=== PATIENT | male | born 1940 | race Caucasian/White ===

== ENCOUNTER 2018-08-10 08:00 | Inpatient (IN) ==
[~2018-08-10 08:00] MED LIST: LIDOCAINE W/ SODIUM BICARB 0.5 ML SYR ONE; LIDOCAINE W/ SODIUM BICARB 0.5 ML SYR SUBD ONE; Lactated Ringers 1,000 ML PRIMARY IV ONE; Lactated Ringers 1,000 ML PRIMARY IV SCH; Nasal Sanitizer POPSWAB ampule 3 AMP (Nozin) PREOP DOSE ENOS SCH; ceFAZolin Inj 2gm (Premix) 2 GM/50 ML BAG IV ONE
[2018-08-10] MEDS ORDERED: fentaNYL Inj 250 MCG/5 ML VIAL ONE (08:36)
[2018-08-10] MEDS ORDERED: PROPOFOL 10 MG/1 ML (200 MG/20 ML) VIAL IV ONE (08:36)
[2018-08-10] MEDS ORDERED: LIDOCAINE MPF 2% - 5 ML (20 MG/1 ML) ONE (08:36)
[2018-08-10] MEDS ORDERED: MIDAZOLAM HCL 2 MG/2 ML VIAL ONE (08:36)
[2018-08-10] MEDS ORDERED: ceFAZolin Inj 2gm (Premix) 2 GM/50 ML BAG IV ONE (08:57)
[2018-08-10] MEDS ORDERED: ePHEDrine Inj 50 MG/ML AMP ONE (10:03)
[2018-08-10] MEDS ORDERED: KETAMINE 100 MG/1 ML - 5 ML ONE (10:38)
[2018-08-10] MEDS ORDERED: Lactated Ringers 1,000 ML PRIMARY IV ONE (10:59)
[2018-08-10] MEDS ORDERED: BUPivacaine Liposome/PF (Exparel) Inj 20ml vial INFIL ONE (11:10)
[2018-08-10] MEDS ORDERED: BUPivacaine Inj 0.5% PF (5mg/ml) 10ml vial ONE (11:10)
--- NOTE | 2018-08-10 12:25 | ORTHO.OP ---
Surgery Date: 08/10/18 Preoperative Diagnosis: Delayed union right femoral neck fracture with hardware back out/failure Postoperative Diagnosis: Same Procedure: #1Removal hardware right hip replacement #2 cannulated screw fixation right femoral neck fracture with new hardware. Surgeon: Vicki Ferrer MD Rehabilitation Nurse: MARYCRUZ Hutchinson Anesthesia Provider: Myke Valentine CRNA Anesthesia Type: General Estimated Blood Loss (mL): 75 Fluids: 1600 mL crystalloid Complications: None Operative Summary: Extubated and taken to recovery in stable condition.
[2018-08-10] MEDS ORDERED: ONDANSETRON 4 MG/2 ML VIAL IVP PRN (12:53)
[2018-08-10] MEDS ORDERED: MORPHINE SULFATE 2 MG/1 ML IVP PRN (12:53)
[2018-08-10] MEDS ORDERED: MORPHINE SULFATE 10 MG/1 ML IV PRN (13:05)
[2018-08-10] MEDS ORDERED: MORPHINE SULFATE 4 MG/1 ML IV PRN (13:05)
[2018-08-10] MEDS ORDERED: MORPHINE SULFATE 2 MG/1 ML IV PRN (13:05)
--- NOTE | 2018-08-10 13:31 | CONSULT ---
Consult Note - Consult Consult Date: 08/10/18 Reason for Consult: PostOp Consulation : Ortho Requesting Physician: Dr. Ferrer Primary Care Provider: NONE NONE - History of Present Illness History of Present Illness: This is a 77 years old male with medical history significant for history of diabetes, hypertension, essential tremor and hypothyroidism who came into the hospital to have surgery for removal of hardware from a previous right hip fracture and replacement with new screws. This was done today by Dr. ferrer. The hospitalist service were consulted for management of medical issues. The patient did have some discomfort superficial he said in the wound but otherwise denying other symptoms. There is no chest pain, no nausea. No shortness of breath. Past Medical History Medical History: 1. Hypertension. 2. Diabetes. 3. Essential tremor. 4. Hypothyroidism Surgical History: 1. History of appendectomy. 2. History of renal tumor ablation. 3. History of thyroidectomy Family History: Reviewed an Not Pertinent Past Social History: Doesn't smoke, doesn't drink no drugs. Lives in [place]. 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 Tobacco Use: Never Smoker In the Past 12 Months, Have Used or Abuse Any of the Following Substance: None Alcohol Use: None Review of Systems - Review of Systems All Systems: Reviewed & No Additional Complaints Except as Stated Medication / Allergies Home Medications: Home Medications Medication Instructions Recorded Confirmed Type insulin lispro (U- 100) 100 15 unit SUBCUT QACLUNCH 05/24/18 08/09/18 History unit/mL subcutaneous solution levothyroxine 175 mcg tablet 175 mcg PO QDAY 05/24/18 08/09/18 History hydrocodone 5 mg-acetaminophen 325 1 tab PO Q4H PRN 05/28/18 08/09/18 History mg tablet Calcium Carbonate [Calcium] 200 mg PO DAILY 07/29/18 08/09/18 History Cyclobenzaprine HCl 10 mg PO PRN PRN 07/29/18 08/09/18 History Furosemide 20 mg PO DAILY 07/29/18 08/09/18 History Lisinopril 20 mg PO DAILY 07/29/18 08/10/18 History Magnesium Oxide 420 mg PO DAILY 07/29/18 08/09/18 History Potassium Gluconate 500 mg PO DAILY 07/29/18 08/09/18 History Primidone 50 mg PO TID 07/29/18 08/09/18 History Allergies/Adverse Reactions: Allergies Allergy/AdvReac Type Severity Reaction Status Date / Time No Known Allergies Allergy Verified 08/10/18 13:02 Exam - Vitals Vital Signs: Vital Signs Temperature 97 F Temperature Source Temporal Artery Scan Pulse Rate [Pulse Oximeter] 78 Pulse Rate 71 Respiratory Rate 12 Blood Pressure [Right Arm] 151/84 Blood Pressure 138/77 Pulse Ox 91 Oxygen Flow Rate 1L Oxygen Delivery Method Room Air Height 6 ft 5 in Weight 264 lb 12.8 oz - General General Appearance: No Acute Distress, Cooperative, Obese - Head Head Exam: Normal Inspection - Eye Eye Exam: POSITIVE: Normal Appearance - ENT ENT Exam: POSITIVE: Normal Exam - Neck Neck Exam: Normal Inspection - Respiratory Respiratory Exam: POSITIVE: Clear to Auscultation - Bilaterally - Cardiovascular Cardiovascular Exam: POSITIVE: RRR - GI/Abdominal GI/Abdominal Exam: POSITIVE: Normal Bowel Sounds, Non Tender, Non Distended, Soft, No Organomegaly - Rectal Rectal Exam: POSITIVE: Deferred - External Exam: POSITIVE: Deferred - Extremities Extremities Exam: POSITIVE: Normal Inspection - Back Back Exam: POSITIVE: Normal Inspection - Neurological Neurological Exam: POSITIVE: Alert, Oriented x 3, CN II-XII Intact, No Facial Droop, Speech Intact / Clear, Motor Sensory Deficit - Psychiatric Psychiatric Exam: POSITIVE: Normal Affect - Integumentary Integumentary Exam: POSITIVE: Normal Color Assessment and Plan - Patient Problems (1) Status post hardware removal Current Visit: Yes Status: Acute Comment: Management per Dr. Ferrer. He wrote already for pain medications. PT and OT will be consulted. Plan is likely for him to go home on per My discussion with Dr. Ferrer. Code(s): Z98.890 - Other specified postprocedural states (2) Diabetes Current Visit: Yes Status: Acute Comment: Will puts him on his usual medications. His regimen is somewhat different, he said that he is on combination of long and short acting. he Use the same combination either once or twice and sometimes even he skip the dosage. The last time he took it was on Thursday. I think will check his blood sugar and if determine we give him both we just use the short-acting to control his blood sugar. Apparently he would give himself the insulin if his blood sugar more than 200. Code(s): E11.9 - Type 2 diabetes mellitus without complications (3) Hypertension Current Visit: Yes Status: Acute Comment: Resume previous meds Code(s): I10 - Essential (primary) hypertension (4) Hypothyroidism Current Visit: Yes Status: Acute Comment: Same med Code(s): E03.9 - Hypothyroidism, unspecified
--- NOTE | 2018-08-10 15:01 | CRNA.PROGR ---
Anesthesia Time - Procedure/Recovery Time Start Date: 08/10/18 End Date: 08/10/18 Anesthesia : Time In: 09:46 Anesthesia : Time Out: 12:25 Anesthesia : Total Time: 159 - Total Anesthesia Time Total Anesthesia Time (minutes): 159 - Other Weight: 120.111 kg Height: 6 ft 5 in Body Mass Index (BMI): 31.4 Physical Status: P3 Anesthesia Type: General Anesthesia : LMA
[2018-08-10] MEDS: PRIMIDONE 50 MG PO SCH ×2 (16:13→20:08)
[2018-08-10] MEDS: ceFAZolin Inj 2gm (Premix) 2 GM/50 ML BAG IV SCH (16:13)
[2018-08-10] MEDS: DOCUSATE 100 MG CAPSULE PO SCH (20:08)
[2018-08-10] MEDS: INSULIN ASPART 100 UNIT/ML SUBCUT PRN (20:16)
[2018-08-10] MEDS: HYDROcodone-APAP 7.5 MG-325 MG TABLET PO PRN (21:52)
[2018-08-11] MEDS: ceFAZolin Inj 2gm (Premix) 2 GM/50 ML BAG IV SCH ×2 (01:56→08:21)
[2018-08-11] MEDS: HYDROcodone-APAP 7.5 MG-325 MG TABLET PO PRN ×4 (04:43→20:12)
[2018-08-11 05:46] LABS: BASOPHILS # (AUTO) 0.02 10*3/UL; BASOPHILS % (AUTO) 0.4 % (0-1); EOSINOPHILS # (AUTO) 0.11 10*3/UL; EOSINOPHILS % (AUTO) 2.1 % (0-8); Hematocrit [HCT] 32.7 % (42.0-52.0); Hemoglobin [HGB] 10.8 g/dL (14.0-18.0); LYMPHOCYTES # (AUTO) 1.11 10*3/uL; MEAN CORPUSCULAR HEMOGLOBIN 27.8 PG (27-31); MEAN CORPUSCULAR VOLUME 84.1 FL (80-90); MEAN PLATELET VOLUME 10.5 FL (7.4-12.2); MONOCYTES # (AUTO) 0.41 10*3/UL (0.3-0.8); MONOCYTES % (AUTO) 7.9 % (5-15); NEUTROPHILS # (AUTO) 3.52 10*3/UL; NEUTROPHILS % (AUTO) 68.1 % (50-80); RED BLOOD COUNT 3.89 10^6/uL (4.70-6.10)
[2018-08-11 05:54] LABS: PLATELET MORPHOLOGY COMMENT NORMAL MORPHOLOGY (NORM); RBC MORPHOLOGY COMMENT NORMAL MORPHOLOGY (NORM); WBC MORPHOLOGY COMMENT NORMAL MORPHOLOGY (NORM)
[2018-08-11 06:02] LABS: BLOOD UREA NITROGEN 22 mg/dL (7-22)
[2018-08-11] MEDS: MAGNESIUM OXIDE 400 MG TABLET PO SCH (07:09)
[2018-08-11] MEDS: INSULIN ASPART 100 UNIT/ML SUBCUT PRN ×3 (07:30→20:13)
--- NOTE | 2018-08-11 07:57 | ORTHO.PROG ---
Last Taken Vital Signs: Vital Signs - Last Taken Temperature 98.3 F 08/11/18 05:00 Pulse Rate 95 08/11/18 05:00 Respiratory Rate 20 08/11/18 05:00 Blood Pressure 131/79 08/11/18 05:00 Pulse Ox 93 08/11/18 05:03 Subjective: Patient sitting up in bed eating breakfast. Does not seem to have much pain. Told me that he can move his leg with less pain than prior to surgery. Objective: Vital signs stable patient afebrile. Right hip dressing clean and dry. Thigh is supple. Hemoglobin and hematocrit 10 and 32. Assessment: Impression: Doing well following fixation of right hip fracture. Plan: Plan: Is to continue toe-touch weightbearing for now. Patient will have a ride tomorrow from [place]. Probably discharge him tomorrow morning.
[2018-08-11] MEDS: CALCIUM CARBONATE 500 MG (TUMS) CHEWABLE TABLET PO SCH (08:21)
[2018-08-11] MEDS: PRIMIDONE 50 MG PO SCH ×3 (08:21→20:12)
[2018-08-11] MEDS: LISINOPRIL 20 MG TABLET PO SCH (08:21)
[2018-08-11] MEDS: DOCUSATE 100 MG CAPSULE PO SCH ×2 (08:22→20:12)
[2018-08-11] MEDS: FUROSEMIDE 20 MG TABLET PO SCH (08:22)
[2018-08-11] MEDS ORDERED: POTASSIUM GLUCONATE 500 MG PO SCH (09:00)
--- NOTE | 2018-08-11 10:13 | PDOC(PROG) ---
Date of Service: 08/11/18 Time of Service: 10:09 Interval History: No complaints of chest pain, shortness breath, nausea or vomiting. Right hip pain well-controlled. Objective : Data - Labs CBC and BMP: 08/11/18 05:29 08/11/18 05:29 Additional Lab Results: Selected Entries 08/10/18 09:05 08/10/18 12:34 08/10/18 16:58 Finger Stick Blood Glucose 177 H 185 H 186 H 08/11/18 07:00 Finger Stick Blood Glucose 217 H Objective : Exam - General General Appearance: No Acute Distress, Cooperative Additional General Exam Details: Vital Signs - Last Taken Temperature 99.7 F H 08/11/18 07:59 Pulse Rate 88 08/11/18 07:59 Respiratory Rate 12 08/11/18 07:59 Blood Pressure 142/79 08/11/18 07:59 Pulse Ox 93 08/11/18 07:59 - Eye Eye Exam: No Scleral Icterus - ENT ENT Exam: Mucous Membranes Moist - Respiratory Respiratory Exam: Clear to Auscultation - Bilaterally, Breathing Non Labored - Cardiovascular Cardiovascular Exam: RRR, No Murmur, No Clicks, No Gallops, No Rubs, No JVD - GI/Abdominal GI/Abdominal Exam: Normal Bowel Sounds, Non Tender, Non Distended, Soft - Extremities Extremities Exam: No Clubbing Present, No Edema Present, No Cyanosis Present Additional Extremities Exam Details: Right hip incision is dressed, dressing is clean, dry, intact - Neurological Neurological Exam: Alert, Oriented x 3, No Facial Droop, Speech Intact / Clear Assessment and Plan - Patient Problems (1) Status post hardware removal Current Visit: Yes Status: Acute Code(s): Z98.890 - Other specified postprocedural states (2) Diabetes Current Visit: Yes Status: Acute Code(s): E11.9 - Type 2 diabetes mellitus without complications Qualifiers: Diabetes mellitus type: type 2 Diabetes mellitus assisted insulin use: with technician terminal and repeater use Diabetes mellitus complication status: without complication Qualified Code(s): E11.9 - Type 2 diabetes mellitus without complications; Z79.4 - assisted (current) use of insulin (3) Hypertension Current Visit: Yes Status: Acute Code(s): I10 - Essential (primary) hypertension Qualifiers: Hypertension type: essential hypertension Qualified Code(s): I10 - Essential (primary) hypertension (4) Hypothyroidism Current Visit: Yes Status: Acute Code(s): E03.9 - Hypothyroidism, unspecified Qualifiers: Hypothyroidism type: unspecified Qualified Code(s): E03.9 - Hypothyroidism, unspecified - Assessment / Plan Additional Assessment/Plan Details: Given blood sugars, I will continue insulin regimen as is for now. No change in antihypertensive therapy. The patient mentioned that he has been taking some calcium and magnesium supplements. His calcium level looks fine. I'll check his magnesium tomorrow per his request. He is worried that his calcium and magnesium will be elevated and causing problems with kidney stones. PT and OT. DVT prophylaxis as per orthopedics.
--- NOTE | 2018-08-11 10:27 | PT.PROG ---
Progress Note Progress Note: S: Patient states he isn't in too much pain this morning. O: Patient transferred from sit to stand with MOAx2. He was able to ambulate to the door of his room and back to his chair. A: Patient appeared to have difficulty transferring from supine to sitting, requiring MOAx2 to sit him upright. He was able to transfer and ambulate with moderate assistance. Patient will continue to benefit from skilled intervention. P: Patient will be seen twice a day during the week and once over the weekend until discharge.
--- NOTE | 2018-08-11 10:31 | PTI REPORT ---
Thank you for the referral of Jai Carcamo. He was seen on 08/10/18 for an inpatient evaluation status post right hip fracture, ORIF, and revision. SUBJECTIVE: The patient is a 77-year-old male. The patient reports his injury originally occurred back in March and he had surgery done in Christmas; however, it was discovered that some of the screws were getting into the joint, causing him excruciating pain, thus undergoing surgery to fix this problem. He states that even though he has surgical pain right now, it feels a lot better than it did after the first surgery. PAST MEDICAL HISTORY: Past medical history can be found in the patient's medical record. OBJECTIVE FINDINGS: Pain: The patient reports a pain level currently of 2 to 3/10 on the verbal analog scale (0=no pain, 10=worst pain); however, nursing states they just recently gave him his medication. Bed mobility: The patient was able to perform bed mobility with stand by assistance and verbal cues from supine to edge of bed. He was able to sit unsupported at edge of bed x5 minutes without any difficulty, shortness of breath, or pain increase. He was able to perform bed mobility back into bed with verbal cues to use his left lower extremity to assist his right. Transfers: The patient was able to perform a sit to stand transfer with proper hand placement and front wheeled walker that he brought while maintaining toe touch weight-bearing on the right lower extremity. Ambulation: The patient ambulated approximately 5 feet within his room only, maintaining the toe touch weight-bearing. Incision/Edema: The patient's incision was unable to be inspected due to the surgical bandage. The patient demonstrates generalized Grade II edema in that right hip and leg region. ASSESSMENT: Problem List: Decreased mobility Decreased strength Patient must maintain toe touch weight-bearing status Physical Therapy Goals: To be met by discharge from inpatient: Patient will be able to ascend and descend 5 stairs using his front wheeled walker and hand railing due to their home environment and having 4 steps to get in and out of their home, all while maintaining toe touch weight-bearing per surgical precautions. Patient will be able to ambulate up to 100 feet with appropriate assistive device and toe touch weight-bearing for household ambulation. TREATMENT PLAN: Patient will be seen B.I.D during the week and one time per day over the weekend as an inpatient to address the above goals and objectives. INITIAL TREATMENT: Treatment today consisted of the initial evaluation followed by the patient performing bed mobility in and out of bed as well as unsupported activities at edge of bed. The patient ambulated within his room, maintaining toe touch weight-bearing with his front wheeled walker that he brought from home. Per the patient, he is under the understanding that Dr. Ferrer will release him tomorrow if cleared by therapy. Depending on the patient's pain level we will progress tomorrow with gait training up and down stairs. ALE
--- NOTE | 2018-08-11 15:07 | PT.PROG ---
Progress Note Progress Note: S: Patient states he is feeling okay at this time. O: Patient ambulated 50 ft from his chair to the hallway. He completed open chain exercises bilaterally in a supine position. He was able to complete 5 repetitions of sit to stands before requesting to stop. A: Patient is improving with tolerance to exercises and ambulation. He will continue to benefit from skilled intervention. P: Patient will be seen twice a day during the week and once over the weekend until discharge.
--- NOTE | 2018-08-11 16:02 | OTI REPORT ---
Thank you for the referral of Jai Carcamo. He was seen on 08/11/18 for an occupational therapy inpatient evaluation status post right hip fracture. SUBJECTIVE: The patient is a 77-year-old male who is being seen secondary to having a hip revision done on the right side. The patient states that prior to admission he had lived at his home for the past month; however, [facility]. The patient states he was still struggling with some of his ADLs such as dressing, but it was getting better. He has been limited with some of his activity as when he walked, the screw that was impinging into the bone was hurting him quite a bit. His states that they have a one level home. They do not have a shower chair. They do have a higher toilet. The patient reports that he does have some adaptive devices but they do not work very well and he was interested in new devices. PAST MEDICAL HISTORY: Past medical history can be found in the patient's medical record. OBJECTIVE FINDINGS: General observations: The patient was sitting in chair upon the therapist's arrival. He was educated in his hip precautions. Activities of daily living: The patient was issued a flavoring machine operator, sock aide, shoe horn, and bath sponge to improve his independence with ADLs. The patient was able to use flavoring machine operator to doff socks and don pants with min assist. He was able to pull pants up to knees. Once standing, the patient required max assist to pull pants up to waist level as he demonstrated balance difficulties. Transfers: The patient required max assist to come from sit to stand. We did have the patient weigh himself on the scale. He required mod assist to keep his balance. The patient required min assist to transfer from stand to sit. Range of motion: The patient had within functional limits for active range of motion of bilateral upper extremities. Strength: Strength throughout bilateral upper extremities was 3+/5. He has decreased functional strength for upper extremities when completing sit to stands. ASSESSMENT: The patient may benefit from a shower chair; however, he and his wanted to discuss this further to see which type of shower chair they would like. Problem List: Decreased ability to complete ADLs Decreased upper extremity strength Decreased ability to complete transfers Decreased safety Short-Term Goals: To be met by discharge from inpatient: Patient will be able to use adaptive devices and modified independence to dress lower extremities and stand by assist to pull pants from knee to waistline when in a standing position. Patient will be able to complete a toilet transfer with stand by assist. Patient will be able to stand at sink x5 minutes and complete standing activity with stand by assistance with no balance issues. Patient will increase upper extremity strength to 4+/5 to improve his abilities to complete sit to stand transfers with stand by assist. Long-Term Goals: To be met following discharge from inpatient: Patient will demonstrate independence and safety with functional transfers and ADLs 100% of the time. TREATMENT PLAN: Patient will be seen B.I.D during the week and one time per day over the weekend as an inpatient to address the above goals and objectives. INITIAL TREATMENT: Treatment today consisted of the initial evaluation followed by the patient receiving education on adaptive devices dressing lower extremities. ALE
--- NOTE | 2018-08-11 16:24 | OT.PROG ---
Progress Note Progress Note: S: pt stated he was ok with going downstairs for therapy. He appeared to be up for about anything. O: pt was seen in therapy after completing PT. He completed UE exercises with GTB in all planes x20 to increase strength to assist with postural transitions. He then transferred apprx 20 ft to arm bike. He completed 10 min on arm bike to increase activity tolerance. OT assisted PT back up to his room where he was left upright in chair with call light within reach. A: pt may continue to benefit from therapy, with possible SB to ensure a successful return home. P: continue per POC.
[2018-08-12] MEDS: HYDROcodone-APAP 7.5 MG-325 MG TABLET PO PRN ×3 (04:51→13:32)
[2018-08-12 05:06] LABS: BASOPHILS # (AUTO) 0.02 10*3/UL; BASOPHILS % (AUTO) 0.4 % (0-1); EOSINOPHILS # (AUTO) 0.22 10*3/UL; EOSINOPHILS % (AUTO) 4.6 % (0-8); Hematocrit [HCT] 31.9 % (42.0-52.0); Hemoglobin [HGB] 10.3 g/dL (14.0-18.0); LYMPHOCYTES # (AUTO) 1.14 10*3/uL; MEAN CORPUSCULAR HEMOGLOBIN 27.1 PG (27-31); MEAN CORPUSCULAR HGB CONC 32.3 g/dL (33-37); MEAN CORPUSCULAR VOLUME 83.9 FL (80-90); MEAN PLATELET VOLUME 10.9 FL (7.4-12.2); MONOCYTES # (AUTO) 0.45 10*3/UL (0.3-0.8); MONOCYTES % (AUTO) 9.4 % (5-15); NEUTROPHILS # (AUTO) 2.94 10*3/UL; NEUTROPHILS % (AUTO) 61.6 % (50-80)
[2018-08-12 05:13] LABS: PLATELET MORPHOLOGY COMMENT NORMAL MORPHOLOGY (NORM); RBC MORPHOLOGY COMMENT NORMAL MORPHOLOGY (NORM); WBC MORPHOLOGY COMMENT NORMAL MORPHOLOGY (NORM)
[2018-08-12 05:28] LABS: BLOOD UREA NITROGEN 22 mg/dL (7-22)
[2018-08-12] MEDS: MAGNESIUM OXIDE 400 MG TABLET PO SCH (06:40)
[2018-08-12] MEDS: INSULIN ASPART 100 UNIT/ML SUBCUT PRN ×2 (07:32→20:53)
[2018-08-12] MEDS: DOCUSATE 100 MG CAPSULE PO SCH ×2 (08:32→20:52)
[2018-08-12] MEDS: PRIMIDONE 50 MG PO SCH ×3 (08:32→20:52)
[2018-08-12] MEDS: CALCIUM CARBONATE 500 MG (TUMS) CHEWABLE TABLET PO SCH (08:32)
[2018-08-12] MEDS: LISINOPRIL 20 MG TABLET PO SCH (08:32)
[2018-08-12] MEDS: FUROSEMIDE 20 MG TABLET PO SCH (08:32)
--- NOTE | 2018-08-12 09:53 | PDOC(PROG) ---
Date of Service: 08/12/18 Time of Service: 09:49 Interval History: no chest pain, no SOB, no nausea or vomiting. right hip pain is better today. He thinks he has more lateral movement in hip than prior to surgery and hardware pain seems to be resolved. willing to do swing bed. Objective : Data - Labs CBC and BMP: 08/12/18 04:50 08/12/18 04:50 Additional Lab Results: Selected Entries 08/11/18 15:38 08/11/18 20:45 08/12/18 07:00 Finger Stick Blood Glucose 225 H 202 H 222 H Objective : Exam - General General Appearance: No Acute Distress, Cooperative Additional General Exam Details: Vital Signs - Last Taken Temperature 97.6 F 08/12/18 07:11 Pulse Rate 76 08/12/18 07:11 Respiratory Rate 18 08/12/18 07:11 Blood Pressure 112/58 08/12/18 07:11 Pulse Ox 93 08/12/18 07:11 - Eye Eye Exam: No Scleral Icterus - ENT ENT Exam: Mucous Membranes Moist - Neck Neck Exam: JVP is not Raised - Respiratory Respiratory Exam: Clear to Auscultation - Bilaterally, Breathing Non Labored - Cardiovascular Cardiovascular Exam: RRR, No Murmur, No Clicks, No Gallops, No Rubs, No JVD - GI/Abdominal GI/Abdominal Exam: Normal Bowel Sounds, Non Tender, Non Distended, Soft - Extremities Extremities Exam: No Clubbing Present, No Edema Present, No Cyanosis Present Additional Extremities Exam Details: right hip incision is dressed with a clean, dry, intact dressing. - Neurological Neurological Exam: Alert, Oriented x 3, No Facial Droop, Speech Intact / Clear - Psychiatric Psychiatric Exam: Normal Affect, Normal Mood Assessment and Plan - Patient Problems (1) Status post hardware removal Current Visit: Yes Status: Acute Code(s): Z98.890 - Other specified postprocedural states (2) Diabetes Current Visit: Yes Status: Acute Code(s): E11.9 - Type 2 diabetes mellitus without complications Qualifiers: Diabetes mellitus type: type 2 Diabetes mellitus rodent exterminator insulin use: with rodent exterminator use Diabetes mellitus complication status: without complication Qualified Code(s): E11.9 - Type 2 diabetes mellitus without complications; Z79.4 - intermodal dispatcher (current) use of insulin (3) Hypertension Current Visit: Yes Status: Acute Code(s): I10 - Essential (primary) hypertension Qualifiers: Hypertension type: essential hypertension Qualified Code(s): I10 - Essential (primary) hypertension (4) Hypothyroidism Current Visit: Yes Status: Acute Code(s): E03.9 - Hypothyroidism, unspecified Qualifiers: Hypothyroidism type: unspecified Qualified Code(s): E03.9 - Hypothyroidism, unspecified - Assessment / Plan Additional Assessment/Plan Details: continue PT and OT probable swing bed continue insulin coverage for blood sugars. add small dose of lantus at night. bedside blood sugar checks DVT prophylaxis as per orthopedics.
--- NOTE | 2018-08-12 11:28 | OT.PROG ---
Progress Note Progress Note: S: pt stated he was doing better than yesterday and he can feel the pain relief in hip as soon as he was out of surgery. O: pt completed bed mobility with min A to EOB. He then was educated on sock aid and director of professional services and completed task of donning/doffing socks with min A. LE dressing he used director of professional services and completed with SBA for safety. He donned UE shirt INd. He transferred to restroom with CGA and completed toileting INd. He then completed hygiene at sink ind and transferred downstairs apprx 45 ft before sitting in w/c. He completed 12 min on UE bike to increase activity tolerance before transferring to mat table. He needed min A to complete bed mobility with MIn A. PT took over therapy at this point. A: pt became somewhat fatigued upon completion of OT/PT and did not complete all of his exercises towards end of therapy. He returned to his room and nursing notified of fatigue and concern about his insulin. P: continue per POC.
--- NOTE | 2018-08-12 11:49 | PT.PROG ---
Progress Note Progress Note: S. Patient stated that he is tired this morning, however agreed to go to the therapy gym. O. Patient ambulated 70 feet to the wheelchair and was wheeled to the therapy gym where he performed exercises in the form of; heel slides, quad sets, glute sets, ankle pumps, short arc quads, heel toe raises, seated long arc quads, marches, ball squeezes, clam shells, resisted knee flexion, heel toe raises, all x 10 bilaterally with red thera bands, Patient then performed sit to stands x 10 Patient used the nu-step x 10 minutes then ambulated 50 feet to the wheelchair and was wheeled back to his room and was left with call light and alarm. A. Patient tolerated therapy well, he was able to perform all exercises with no increase in pain or problems. Patient continues to require min assist with transfers and ambulation, he would continue to benefit from skilled therapy to increase strength, endurance, and safety at this time. P. Continue POC.
--- NOTE | 2018-08-12 16:24 | OT.PROG ---
Progress Note Progress Note: S: pt reports he thinks he is doing better today. He was ok with getting a new walker. O: pt was transferred to therapy by PT. He sat on eOB and completed pulleys on 10-15 # in rows, bicep flex and shoulder ext x25, GTB in hor abd, tricep ext x25 all iwth BUE's to increase strength to assist with postural transitions. He was transferred back to his room and left upright in chair in reclined position with chair alarm on and call light within reach. A: pt completed activities much better today but may still benefit from SB to increase activity tolerance and improve sit to stands and overall transfers. P: Continue per POC.
--- NOTE | 2018-08-12 18:44 | ORTHO.PROG ---
Last Taken Vital Signs: Vital Signs - Last Taken Temperature 97.5 F 08/12/18 16:21 Pulse Rate 93 08/12/18 16:21 Respiratory Rate 18 08/12/18 16:21 Blood Pressure 108/51 08/12/18 16:21 Pulse Ox 93 08/12/18 16:21 Subjective: Patient sitting up in bed. Notices improved relief compared to preop. Objective: Right lower extremity hip incision clean and dry. Vital signs are stable patient is afebrile. Assessment: Impression as well after repeat pinning of right hip fracture. Patient is making some progress with regards to strength. Plan: Plan: It is felt that he would benefit from remaining here through the weekend and then hopefully going back to [place] on Thursday. He will continue work on physical therapy and generalized strengthening. Remain toe-touch weightbearing at least for a week or 2.
[2018-08-12] MEDS ORDERED: Insulin Glargine SoloStar Inj 100 UNIT/ML INSULN.PEN SUBCUT SCH (21:00)
[2018-08-13 05:01] LABS: BASOPHILS # (AUTO) 0.02 10*3/UL; BASOPHILS % (AUTO) 0.5 % (0-1); EOSINOPHILS # (AUTO) 0.25 10*3/UL; EOSINOPHILS % (AUTO) 5.7 % (0-8); Hematocrit [HCT] 31.3 % (42.0-52.0); Hemoglobin [HGB] 10.2 g/dL (14.0-18.0); LYMPHOCYTES # (AUTO) 1.15 10*3/uL; MEAN CORPUSCULAR HEMOGLOBIN 27.3 PG (27-31); MEAN CORPUSCULAR HGB CONC 32.6 g/dL (33-37); MEAN CORPUSCULAR VOLUME 83.7 FL (80-90); MEAN PLATELET VOLUME 11.3 FL (7.4-12.2); MONOCYTES # (AUTO) 0.38 10*3/UL (0.3-0.8); MONOCYTES % (AUTO) 8.6 % (5-15); NEUTROPHILS % (AUTO) 58.9 % (50-80); RED BLOOD COUNT 3.74 10^6/uL (4.70-6.10)
[2018-08-13 05:07] LABS: PLATELET MORPHOLOGY COMMENT NORMAL MORPHOLOGY (NORM); RBC MORPHOLOGY COMMENT NORMAL MORPHOLOGY (NORM); WBC MORPHOLOGY COMMENT NORMAL MORPHOLOGY (NORM)
[2018-08-13 05:16] LABS: BLOOD UREA NITROGEN 25 mg/dL (7-22); BUN/CREATININE RATIO 22.72 (6-20)
[2018-08-13] MEDS: MAGNESIUM OXIDE 400 MG TABLET PO SCH (07:43)
--- NOTE | 2018-08-13 08:41 | PT PM DAY ---
Diagnosis : Right Hip Fracture PM - Physical Therapy S: The patient states he is tired this afternoon; however, he agreed to come down to the therapy gym. O: The patient ambulated 40 feet to wheelchair and was wheeled to the therapy gym where he used the NuStep x15 minutes. He then performed seated exercises including long arc quads, marches, heel/toe raises, ball squeezes, and clamshells, all x10 bilaterally. The patient then performed sit to stands x7 and ambulated approximately 40 feet to the wheelchair. The patient was returned to his room where he was left in his chair with alarm set and call light within reach. A: The patient tolerated therapy fair. He is struggling with balance deficits and maintaining his toe touch weight-bearing status. He needs frequent reminders to remain toe touch weight-bearing. The patient would continue to benefit from skilled therapy to increase strength, mobility, and safety. P: Continue seeing patient BID during the week and one time per day over the weekend for transfers, ambulation, and range of motion/strengthening exercises. INNAD
[2018-08-13] MEDS: CALCIUM CARBONATE 500 MG (TUMS) CHEWABLE TABLET PO SCH (09:07)
[2018-08-13] MEDS: FUROSEMIDE 20 MG TABLET PO SCH (09:07)
[2018-08-13] MEDS: DOCUSATE 100 MG CAPSULE PO SCH ×2 (09:07→20:19)
[2018-08-13] MEDS: PRIMIDONE 50 MG PO SCH ×3 (09:07→20:19)
[2018-08-13] MEDS: LISINOPRIL 20 MG TABLET PO SCH (09:07)
[2018-08-13] MEDS: HYDROcodone-APAP 7.5 MG-325 MG TABLET PO PRN (09:08)
--- NOTE | 2018-08-13 11:59 | PT.PROG ---
Progress Note Progress Note: S. Patient stated that he is is sore this morning. O. Patient was wheeled to the therapy gym where he performed seated exercises in the form of; long arc quads, marches, heel toe raises, ball squeezes, clam shells, resisted knee flexion all x 10 bilaterally, sit to stands x 10 then ambulated 40 feet to the wheelchair and was returned to his room where he was left in wheelchair at the sink and nursing was notified. A. Patient tolerated therapy fair, he continues to struggle with sit to stand transfers and ambulation and requires min-mod assist. He would benefit from Swing bed to increase strength, mobility and safety at this time. P. Continue POC.
--- NOTE | 2018-08-13 14:09 | PDOC(PROG) ---
Date of Service: 08/13/18 Time of Service: 14:06 Interval History: Patient seen and evaluated a little earlier this morning. Doing very well. No chest pain, shortness breath, nausea or vomiting. Moving his bowels well. His pain is better in the right hip. He feels like he's getting more motion but still has some therapy needs and has 4 steps to get into his home. His is too slight to be able to pick him up should he fall. Objective : Data - Labs CBC and BMP: 08/13/18 04:32 08/13/18 04:32 Additional Lab Results: Selected Entries 08/12/18 16:22 08/12/18 20:55 08/13/18 06:57 Finger Stick Blood Glucose 312 H 353 H 213 H 08/13/18 11:00 Finger Stick Blood Glucose 343 H Objective : Exam - General General Appearance: No Acute Distress, Cooperative Additional General Exam Details: Vital Signs - Last Taken Temperature 97.5 F 08/13/18 11:22 Pulse Rate 81 08/13/18 11:22 Respiratory Rate 20 08/13/18 11:22 Blood Pressure 132/74 08/13/18 11:22 Pulse Ox 94 08/13/18 11:22 - Eye Eye Exam: No Scleral Icterus - ENT ENT Exam: Mucous Membranes Moist - Respiratory Respiratory Exam: Clear to Auscultation - Bilaterally, Breathing Non Labored - Cardiovascular Cardiovascular Exam: RRR, No Murmur, No Clicks, No Gallops, No Rubs, No JVD - GI/Abdominal GI/Abdominal Exam: Normal Bowel Sounds, Non Tender, Non Distended, Soft - Extremities Extremities Exam: No Clubbing Present, No Edema Present, No Cyanosis Present - Neurological Neurological Exam: Alert, Oriented x 3, No Facial Droop, Speech Intact / Clear Assessment and Plan - Patient Problems (1) Diabetes Current Visit: Yes Status: Acute Code(s): E11.9 - Type 2 diabetes mellitus without complications Qualifiers: Diabetes mellitus type: type 2 Diabetes mellitus 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 insulin use: with [facility] use Diabetes mellitus complication status: without complication Qualified Code(s): E11.9 - Type 2 diabetes mellitus without complications; 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 (2) Status post hardware removal Current Visit: Yes Status: Acute Code(s): Z98.890 - Other specified postprocedural states (3) Hypertension Current Visit: Yes Status: Acute Code(s): I10 - Essential (primary) hypertension Qualifiers: Hypertension type: essential hypertension Qualified Code(s): I10 - Essential (primary) hypertension (4) Hypothyroidism Current Visit: Yes Status: Acute Code(s): E03.9 - Hypothyroidism, unspecified Qualifiers: Hypothyroidism type: unspecified Qualified Code(s): E03.9 - Hypothyroidism, unspecified - Assessment / Plan Additional Assessment/Plan Details: I'm going to increase the Lantus his blood sugars are creeping up some. PT and OT and DVT prophylaxis. Anticipating that patient would likely discharge home Thursday as the therapy transport from [place], [place], will come here and drop the patient often they are willing to take the patient back home. We still have some gains to make in terms of therapy, prior to discharge as this patient is too high of a risk to send home today given his increased risk of fall postoperatively. In addition, he needs better blood sugar control prior to discharge. Again anticipating 08/17/2018
--- NOTE | 2018-08-13 15:47 | PT.PROG ---
Progress Note Progress Note: S. Patient stated that he is feeling a little better. O. Patient was wheeled to the therapy gym where he performed seated exercises in the form of; long arc quads, marches, ball squeezes, clam shells, resisted knee flexion all x 15 bilaterally with red thera bands. Patient performed sit to stands x 10 then ambulated 60 feet to the wheelchair and was returned to his room where he was left in his chair with alarm and call light. A. Patient tolerated therapy fair this afternoon, he continues to struggle with sit to stand transfers and ambulation, he would continue to benefit from skilled therapy to increase strength, mobility and safety at this time. P. Continue POC.
[2018-08-13] MEDS: INSULIN ASPART 100 UNIT/ML SUBCUT PRN ×2 (16:15→20:47)
--- NOTE | 2018-08-13 16:26 | OT.PROG ---
Progress Note Progress Note: S: pt reports that he is doing good and he is happy to have clean cloths and may get a shower tomorrow. O: pt was transferred downstairs by after completing toilet transfer and completed toileting INd. He arrived and completed NU step. He transferred to mat table and completed UE exercise in all planes 10-15# x20 to increase strength. He also completed hor abd with GTB also to increase strength to assist with postural transitions such as sit to stands. Pt completed x2 transfers approx total of 25 ft, slow but safely. A: pt is transferring much better, and although sit to stands are slow he is becoming more INd in transition. He may benefit from SB to continue strengthening and improve overall activity tolerance. P: continue per POC.
--- NOTE | 2018-08-13 17:02 | OT.PROG ---
Progress Note Progress Note: S. Patient stated that he is feeling good this afternoon. O. Patient was wheeled to the therapy gym where he performed seated long arc quads, marches, ball squeezes, clam shells, resisted knee flexion all x 20 bilaterally with 5# on the left and blue thera band. Patient then performed sit to stands x 20 and was returned to his room where he was left with call light. A. Patient tolerated therapy well, he continues to struggle with balance patient continues to require verbal cues to slow down. He would continue to benefit from continued therapy to increase strength, mobility and safety. P. Continue POC.
[2018-08-13] MEDS ORDERED: Insulin Glargine SoloStar Inj 100 UNIT/ML INSULN.PEN SUBCUT SCH (21:00)
[2018-08-14] MEDS: INSULIN ASPART 100 UNIT/ML SUBCUT PRN ×4 (07:23→20:32)
[2018-08-14] MEDS: MAGNESIUM OXIDE 400 MG TABLET PO SCH (07:28)
[2018-08-14] MEDS: LISINOPRIL 20 MG TABLET PO SCH (08:19)
[2018-08-14] MEDS: FUROSEMIDE 20 MG TABLET PO SCH (08:20)
[2018-08-14] MEDS: DOCUSATE 100 MG CAPSULE PO SCH ×2 (08:20→20:30)
[2018-08-14] MEDS: CALCIUM CARBONATE 500 MG (TUMS) CHEWABLE TABLET PO SCH (08:20)
[2018-08-14] MEDS: PRIMIDONE 50 MG PO SCH ×3 (08:20→20:30)
--- NOTE | 2018-08-14 11:43 | PDOC(PROG) ---
Date of Service: 08/14/18 Time of Service: 11:39 Interval History: Patient doing well. Pain controlled. No chest pain, shortness breath, nausea or vomiting. Has no constipation. Reading PT and OT notes, patient is improving with therapy, but still has some gains prior to going home. Objective : Data - Labs CBC and BMP: 08/13/18 04:32 08/13/18 04:32 Objective : Exam - General General Appearance: No Acute Distress, Cooperative Additional General Exam Details: Vital Signs - Last Taken Temperature 97.8 F 08/14/18 09:00 Pulse Rate 84 08/14/18 09:00 Respiratory Rate 18 08/14/18 09:00 Blood Pressure 139/71 08/14/18 09:00 Pulse Ox 90 08/14/18 09:00 - Eye Eye Exam: No Scleral Icterus - ENT ENT Exam: Mucous Membranes Moist - Respiratory Respiratory Exam: Clear to Auscultation - Bilaterally, Breathing Non Labored - Cardiovascular Cardiovascular Exam: RRR, No Murmur, No Clicks, No Gallops, No Rubs, No JVD - GI/Abdominal GI/Abdominal Exam: Normal Bowel Sounds, Non Tender, Non Distended, Soft - Extremities Extremities Exam: No Clubbing Present, No Edema Present, No Cyanosis Present - Neurological Neurological Exam: Alert, Oriented x 3, No Facial Droop, Speech Intact / Clear, Moves All Extremities Equally - Psychiatric Psychiatric Exam: Normal Affect, Normal Mood Assessment and Plan - Patient Problems (1) Diabetes Current Visit: Yes Status: Acute Code(s): E11.9 - Type 2 diabetes mellitus without complications Qualifiers: Diabetes mellitus type: type 2 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 Diabetes mellitus complication status: without complication Qualified Code(s): E11.9 - Type 2 diabetes mellitus without complications; Z79.4 - prison (current) use of insulin (2) Status post hardware removal Current Visit: Yes Status: Acute Code(s): Z98.890 - Other specified postprocedural states (3) Hypertension Current Visit: Yes Status: Acute Code(s): I10 - Essential (primary) hypertension Qualifiers: Hypertension type: essential hypertension Qualified Code(s): I10 - Essential (primary) hypertension (4) Hypothyroidism Current Visit: Yes Status: Acute Code(s): E03.9 - Hypothyroidism, unspecified Qualifiers: Hypothyroidism type: unspecified Qualified Code(s): E03.9 - Hypothyroidism, unspecified (5) Essential tremor Current Visit: Yes Status: Acute Code(s): G25.0 - Essential tremor - Assessment / Plan Additional Assessment/Plan Details: Continue PT and OT. The patient's stamina is improving, but he still has some transfer work to do prior to being ready for discharge. Still very high fall risk. I'm anticipating Thursday for discharge. Increase Lantus slightly to 10 units. 08/13/18 15:57 08/13/18 20:16 08/14/18 07:00 Finger Stick Blood Glucose 330 H 276 H 217 H 08/14/18 11:00 Finger Stick Blood Glucose 219 H Blood sugar control is a little better with increase in Lantus. Our goals are still to improve blood sugar control and continue with strengthening, conditioning, work with transfers, and stairs prior to discharge home to hopefully ensure safe transition back to home.
[2018-08-14] MEDS ORDERED: Insulin Glargine SoloStar Inj 100 UNIT/ML INSULN.PEN SUBCUT SCH (21:00)
[2018-08-15] MEDS: MAGNESIUM OXIDE 400 MG TABLET PO SCH (07:12)
[2018-08-15] MEDS: CALCIUM CARBONATE 500 MG (TUMS) CHEWABLE TABLET PO SCH (08:55)
[2018-08-15] MEDS: PRIMIDONE 50 MG PO SCH ×3 (08:55→20:30)
[2018-08-15] MEDS: LISINOPRIL 20 MG TABLET PO SCH (08:55)
[2018-08-15] MEDS: DOCUSATE 100 MG CAPSULE PO SCH ×2 (08:55→20:30)
[2018-08-15] MEDS: FUROSEMIDE 20 MG TABLET PO SCH (08:55)
[2018-08-15] MEDS: HYDROcodone-APAP 7.5 MG-325 MG TABLET PO PRN (09:23)
[2018-08-15] MEDS ORDERED: ASPIRIN 325 MG TABLET PO ONE (12:31)
--- NOTE | 2018-08-15 12:32 | PDOC(PROG) ---
Date of Service: 08/15/18 Time of Service: 12:28 Interval History: no chest pain, shortness of breath, or nausea or vomiting. incision still "stretches", but no pain in hip joint. He feels therapy is going well. Objective : Data - Labs CBC and BMP: 08/13/18 04:32 08/13/18 04:32 Additional Lab Results: Selected Entries 08/14/18 16:00 08/14/18 20:33 08/15/18 06:54 Finger Stick Blood Glucose 302 H 389 H 193 H 08/15/18 11:12 Finger Stick Blood Glucose 246 H Objective : Exam - General General Appearance: No Acute Distress, Cooperative Additional General Exam Details: Vital Signs - Last Taken Temperature 97 F 08/15/18 11:12 Pulse Rate 80 08/15/18 11:12 Respiratory Rate 18 08/15/18 11:12 Blood Pressure 128/78 08/15/18 11:12 Pulse Ox 96 08/15/18 11:12 - Eye Eye Exam: No Scleral Icterus - ENT ENT Exam: Mucous Membranes Moist - Neck Neck Exam: JVP is not Raised - Respiratory Respiratory Exam: Clear to Auscultation - Bilaterally, Breathing Non Labored - Cardiovascular Cardiovascular Exam: RRR, No Murmur, No Clicks, No Gallops, No Rubs, No JVD - GI/Abdominal GI/Abdominal Exam: Normal Bowel Sounds, Non Tender, Non Distended, Soft - Extremities Extremities Exam: No Clubbing Present, No Edema Present, No Cyanosis Present - Neurological Neurological Exam: Alert, Oriented x 3, Normal Gait (gait is looking better with stand by assist with therapist this moring in [place] with walker. may very well be FWW dependent.), No Facial Droop, Speech Intact / Clear, Moves All Extremities Equally Assessment and Plan - Patient Problems (1) Diabetes Current Visit: Yes Status: Acute Code(s): E11.9 - Type 2 diabetes mellitus without complications Qualifiers: Diabetes mellitus type: type 2 Diabetes mellitus longterm insulin use: with longterm use Diabetes mellitus complication status: without complication Qualified Code(s): E11.9 - Type 2 diabetes mellitus without complications; Z79.4 - alf (current) use of insulin (2) Status post hardware removal Current Visit: Yes Status: Acute Code(s): Z98.890 - Other specified postprocedural states (3) Hypertension Current Visit: Yes Status: Acute Code(s): I10 - Essential (primary) hypertension Qualifiers: Hypertension type: essential hypertension Qualified Code(s): I10 - Essential (primary) hypertension (4) Hypothyroidism Current Visit: Yes Status: Acute Code(s): E03.9 - Hypothyroidism, uns pecified Qualifiers: Hypothyroidism type: unspecified Qualified Code(s): E03.9 - Hypothyroidism, unspecified (5) Essential tremor Current Visit: Yes Status: Acute Code(s): G25.0 - Essential tremor - Assessment / Plan Additional Assessment/Plan Details: increase lantus. may benefit from AM dose too? will check where blood sugars are through this next 24 hours. continue PT and OT, and likely continue out patient as well will start aspirin for DVT prophylaxis.
[2018-08-15] MEDS: INSULIN ASPART 100 UNIT/ML SUBCUT PRN (15:47)
[2018-08-15] MEDS: Insulin Glargine SoloStar Inj 100 UNIT/ML INSULN.PEN SUBCUT SCH (20:30)
[2018-08-15] MEDS ORDERED: INSULIN LISPRO SUBCUT SCH (21:00)
[2018-08-15] MEDS ORDERED: [UNRECOGNIZED DRUG - OTHER] SUBCUT SCH (21:00)
[2018-08-16] MEDS: Insulin Glargine SoloStar Inj 100 UNIT/ML INSULN.PEN SUBCUT SCH ×2 (07:27→20:59)
[2018-08-16] MEDS: MAGNESIUM OXIDE 400 MG TABLET PO SCH (07:28)
[2018-08-16] MEDS: PRIMIDONE 50 MG PO SCH ×3 (08:32→20:58)
[2018-08-16] MEDS: DOCUSATE 100 MG CAPSULE PO SCH ×2 (08:32→20:58)
[2018-08-16] MEDS: LISINOPRIL 20 MG TABLET PO SCH (08:32)
[2018-08-16] MEDS: ASPIRIN 325 MG TABLET PO SCH (08:32)
[2018-08-16] MEDS: CALCIUM CARBONATE 500 MG (TUMS) CHEWABLE TABLET PO SCH (08:32)
[2018-08-16] MEDS: FUROSEMIDE 20 MG TABLET PO SCH (08:32)
--- NOTE | 2018-08-16 11:59 | OT AM DAY ---
Diagnosis : Right Hip Fracture AM - Occupational Therapy S: The patient reports he is feeling pretty good today. He does have some routine "pain"; however, this is typical. The patient is willing to participate in therapy session. O: The patient completed the NuStep x23 minutes, upper body ergometer x20 minutes, marching x20, long arc quads x20, heel/toe raises x20, and 15 lb. rows, biceps, triceps, and internal/external rotation with green theraband x15 repetitions each. The patient demonstrated the ability to complete functional transfers to and from the wheelchair with verbal cues to remain toe touch weight-bearing. The patient did require minimum assistance to stand from the wheelchair; however, he does better from a higher surface. A: The patient tolerated today's treatment session fairly. He does require verbal cues to maintain toe touch weight-bearing as well as minimal assistance on occasion for functional transfers. P: Continue seeing patient BID during the week and one time per day over the weekend for upper extremity strengthening, ADLs, and overall functional mobility. MTDD
--- NOTE | 2018-08-16 12:14 | PDOC(PROG) ---
Date of Service: 08/16/18 Time of Service: 11:30 Interval History: No chest pain, shortness breath, nausea or vomiting. Pain in hip controlled. He has right tomorrow, and I think he'll be ready from a therapy standpoint. Still has some gains to make today. Objective : Data - Labs CBC and BMP: 08/13/18 04:32 08/13/18 04:32 Additional Lab Results: Selected Entries 08/15/18 11:12 08/15/18 15:40 08/15/18 20:43 Finger Stick Blood Glucose 246 H 250 H 207 H 08/16/18 07:00 08/16/18 10:54 Finger Stick Blood Glucose 181 H 249 H Objective : Exam - General General Appearance: No Acute Distress, Cooperative Additional General Exam Details: Vital Signs - Last Taken Temperature 97.8 F 08/16/18 10:58 Pulse Rate 77 08/16/18 10:58 Respiratory Rate 18 08/16/18 10:58 Blood Pressure 129/78 08/16/18 10:58 Pulse Ox 96 08/16/18 10:58 - Eye Eye Exam: No Scleral Icterus - ENT ENT Exam: Mucous Membranes Moist - Respiratory Respiratory Exam: Clear to Auscultation - Bilaterally, Breathing Non Labored - Cardiovascular Cardiovascular Exam: RRR, No Murmur, No Clicks, No Gallops, No Rubs, No JVD - GI/Abdominal GI/Abdominal Exam: Normal Bowel Sounds, Non Tender, Non Distended, Soft - Extremities Extremities Exam: No Clubbing Present, No Edema Present, No Cyanosis Present - Neurological Neurological Exam: Alert, Oriented x 3, No Facial Droop, Speech Intact / Clear Assessment and Plan - Patient Problems (1) Diabetes Current Visit: Yes Status: Acute Code(s): E11.9 - Type 2 diabetes mellitus without complications Qualifiers: Diabetes mellitus type: type 2 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 Diabetes mellitus complication status: without complication Qualified Code(s): E11.9 - Type 2 diabetes mellitus without complications; Z79.4 - jail (current) use of insulin (2) Status post hardware removal Current Visit: Yes Status: Acute Code(s): Z98.890 - Other specified postprocedural states (3) Hypertension Current Visit: Yes Status: Acute Code(s): I10 - Essential (primary) hypertension Qualifiers: Hypertension type: essential hypertension Qualified Code(s): I10 - Essential (primary) hypertension (4) Hypothyroidism Current Visit: Yes Status: Acute Code(s): E03.9 - Hypothyroidism, unspecified Qualifiers: Hypothyroidism type: unspecified Qualified Code(s): E03.9 - Hypothyroidism, unspecified (5) Essential tremor Current Visit: Yes Status: Acute Code(s): G25.0 - Essential tremor - Assessment / Plan Additional Assessment/Plan Details: Spoke with Dr. Ferrer, and he'll see the patient tomorrow and remove [place]. He'll also develop a therapy plan with the patient. Pain control has been adequate. Still adjusting diabetes medications, and we will clarify his home fast acting insulin and give sliding scale coverage for that. Lantus has been increased to twice daily. Really need to watch blood sugars over the next day and check a hemoglobin A1c in the morning as well and recheck CBC with patient getting ready to discharge home tomorrow. Would like to optimize blood sugar control to continue to assist with wound healing.
[2018-08-16] MEDS: INSULIN ASPART 100 UNIT/ML SUBCUT PRN ×3 (12:19→21:00)
--- NOTE | 2018-08-16 12:43 | OT AM DAY ---
Diagnosis : Right Hip Fracture AM - Occupational Therapy S: The patient reports he is doing well. He states he is eager to return home with his . O: The patient demonstrated the ability to get out of his recliner independently and ambulate x30 feet. The patient was then wheeled to the physical therapy department where he completed the NuStep x15 minutes. He then ambulated 15 feet and completed supine heel slides, quad sets x10 bilaterally, short arc quads with zero pounds on the right and 5 pounds on the left x20 repetitions, hip abduction with 5 pounds on the left x10 repetitions, bridges x10, bench press with cane with 8 pounds x10 repetitions, and sit to stands x10 repetitions with contact guard assist for safety from an elevated mat table. The patient then ambulated 25 feet and completed the UBE x4 minutes forward and 4 minutes backward. The patient then ambulated 75 feet with use of walker and contact guard assist for safety. Following therapy session the patient was returned to his recliner in his room with call light in place and alarms set. A: The patient is improving with functional transfers at this time as he required contact guard assist only for sit to stands today. P: Continue seeing patient BID during the week and one time per day over the weekend for upper extremity strengthening, ADLs, and overall functional mobility. INNAD
--- NOTE | 2018-08-16 13:30 | ORTHO.PROG ---
Last Taken Vital Signs: Vital Signs - Last Taken Temperature 97.8 F 08/16/18 10:58 Pulse Rate 77 08/16/18 10:58 Respiratory Rate 18 08/16/18 10:58 Blood Pressure 129/78 08/16/18 10:58 Pulse Ox 96 08/16/18 10:58 Subjective: Patient sitting up in chair. His is at his side. States that he is dramatically better than he was before coming in for the surgery. Notes much less pain. Seems very satisfied. Planning on going home to [place] tomorrow. Objective: Vital signs stable patient afebrile. Right hip incision not inspected today. He had pants on and was sitting in a chair. Assessment: Impression: Doing well following repeat pinning of right hip fracture. Plan: Plan: He will go home to [place] tomorrow. I will probably see him back in my office on August 27 for repeat x-ray of his hip. Depending on how that looks, we will make plans for future therapy and weightbearing status from there.
--- NOTE | 2018-08-16 16:29 | OT.PROG ---
Progress Note Progress Note: S: pt reports that he will be going home sometime tomorrow. He thinks he is ready for it, but he understands that it will just take him longer to do things. O: pt was seen in his room and completed bed mobility supine to EOB with mod Ind as it took him longer to complete. He completed donning of LE/UE clothing with mod Ind using sock aid and wool fleece grader and it also took him longer to complete. He completed transfer approx 13 ft to restroom and completed toileting with CGa for safety purposes only. He completed hygiene at sink and walker entire way to therapy approx 300 ft with no breaks. When he arrived at therapy he completed 20 min on UE bike to increase his activity tolerance. A: pt has progressed well, and although it may take him longer to complete activities his activity tolerance has improved. P: continue per POC.
--- NOTE | 2018-08-16 16:50 | OT.PROG ---
Progress Note Progress Note: S: pt reports that he believes he will be going home sometime late morning. He thinks that he is already better from this surgery. O: pt was seen in therapy after being transferred down by PT. He completed dynamic sitting/standing balance with use of balloon to increase balance. He then completed UE exercises with GTB in all planes x20 to increase UE strength to assist with postural transitions. He transferred all the way back to his room with use of walker and CGA only for safety. he was left upright in his chair per his request with call light within reach. A: pt completed sit to stands and transfers well today. Although he completes most activities slow he has gained in strength and activity tolerance, demonstrated by walking all the way to therapy and back. Pt is on track to d/c. P: continue per POC.
--- NOTE | 2018-08-16 17:03 | PT.PROG ---
Progress Note Progress Note: S. Patient stated that he is feeling good this morning. O. Patient ambulated 175 feet to the therapy gym where he used the nu-step x 15 minutes, then performed seated exercises in the form of; long arc quads, marches, ball squeezes, clam shells, resisted knee flexion, heel toe raises, sit to stands, all x 10 with 2# and red thera bands, Patient was left with OT for further therapy. A. Patient tolerated therapy well this afternoon, he continues to make gains with strength, endurance and mobility, he would benefit from 1-2 more treatments at this time. P. Continue POC.
--- NOTE | 2018-08-16 17:07 | PT.PROG ---
Progress Note Progress Note: S. Patient stated that he is is sore this morning. O. Patient ambulated 175 feet to the therapy gym where he performed seated exercises in the form of; long arc quads, marches, heel toe raises, ball squeezes, clam shells, resisted knee flexion all x 10 bilaterally, sit to stands x 10 with 2# and red thera bands, then ambulated 175 feet to his room where he was left in chair with alarm and call light. A. Patient tolerated therapy well, he continues to require min assist with sit to stand transfers and ambulation. He would benefit from continued therapy to increase strength, mobility and safety at this time. P. Continue POC.
[2018-08-17 05:02] LABS: Hematocrit [HCT] 33.1 % (42.0-52.0); Hemoglobin [HGB] 10.9 g/dL (14.0-18.0); MEAN CORPUSCULAR HEMOGLOBIN 27.3 PG (27-31); MEAN CORPUSCULAR HGB CONC 32.9 g/dL (33-37); RED BLOOD COUNT 3.99 10^6/uL (4.70-6.10)
[2018-08-17 05:21] LABS: HEMOGLOBIN A1C 8.77 % (4.2-6.0)
[2018-08-17] MEDS: MAGNESIUM OXIDE 400 MG TABLET PO SCH (07:04)
[2018-08-17] MEDS: Insulin Glargine SoloStar Inj 100 UNIT/ML INSULN.PEN SUBCUT SCH (07:04)
[2018-08-17] MEDS: PRIMIDONE 50 MG PO SCH (08:59)
[2018-08-17] MEDS: FUROSEMIDE 20 MG TABLET PO SCH (08:59)
[2018-08-17] MEDS: CALCIUM CARBONATE 500 MG (TUMS) CHEWABLE TABLET PO SCH (08:59)
[2018-08-17] MEDS: LISINOPRIL 20 MG TABLET PO SCH (08:59)
[2018-08-17] MEDS: DOCUSATE 100 MG CAPSULE PO SCH (09:00)
[2018-08-17] MEDS: ASPIRIN 325 MG TABLET PO SCH (09:00)
--- NOTE | 2018-08-17 09:46 | ORTHO.PROG ---
Last Taken Vital Signs: Vital Signs - Last Taken Temperature 98.7 F 08/17/18 06:55 Pulse Rate 72 08/17/18 06:55 Respiratory Rate 18 08/17/18 06:55 Blood Pressure 141/84 08/17/18 06:55 Pulse Ox 95 08/17/18 06:55 Subjective: Patient lying in bed. No complaints. Anxious to go back home today. Objective: Vital signs stable patient afebrile. Right hip incision clean and dry. Removed every other staple. Applied Steri- Strips. Assessment: Impression: Doing well following repeat pinning right hip. Pain seems to be dramatically improved. Plan: Plan: Is to discharge him back home. He'll remain toe-touch weightbearing. I will see him on Thursday for repeat x-ray of his hip. At that time I'll make further plans with regards to his future therapy and weightbearing status.
--- NOTE | 2018-08-17 10:19 | DCSUMMARY ---
Hospitalization Summary Admit Date: 08/10/2018 Discharge Date: 08/17/18 Primary Diagnosis:: status post hardware removal and redo ORIF right hip Hospital Course: This very pleasant 77-year-old male who presented here having had a hip fracture and open reduction and internal fixation done in [place], [place]. He was having hardware pain. He was taken back to the operating room, screws were removed and replaced and he essentially had a redo ORIF due to delayed bone healing. Postoperatively, his course was complicated by weakness and deconditioning that took a little more time than normal to overcome. In addition we had some blood sugar issues that we wanted to continue to try and help improve for wound healing. By the date of discharge, 08/17/2018, the patient was doing much better from physical therapy and occupational therapy standpoint. He still has a slow get up and go test at about 20 seconds, but I did watch him on the date of discharge and he was able to get up independently which was something he cannot do a few days ago. Other medical problems remained stable through the hospital stay. Today, no complaints of chest pain, shortness breath, nausea or vomiting. The patient is ready to go home. Assessment and Plan: 1. As per discharge assessments noted 2. Disposition: Patient is discharged home. 3. Condition on discharge, stable and improved. 4. Diet: regular diet, resume as prior. 5. Activities: Continue exercises as physical therapy instructed here, but Dr. Ferrer might advance therapy next week 6. Follow-Up: 1. Dr. Ferrer next week 2. [facility] 7-10 days 7. Medications at the Time of Discharge: Home Medications Medication Instructions Recorded Confirmed Type insulin lispro (U- 100) 100 15 unit SUBCUT QACLUNCH 05/24/18 08/09/18 History unit/mL subcutaneous solution levothyroxine 175 mcg tablet 175 mcg PO QDAY 05/24/18 08/09/18 History hydrocodone 5 mg-acetaminophen 325 1 tab PO Q4H PRN 05/28/18 08/09/18 History mg tablet Calcium Carbonate [Calcium] 200 mg PO DAILY 07/29/18 08/09/18 History Cyclobenzaprine HCl 10 mg PO PRN PRN 07/29/18 08/09/18 History Furosemide 20 mg PO DAILY 07/29/18 08/09/18 History Lisinopril 20 mg PO DAILY 07/29/18 08/10/18 History Magnesium Oxide 420 mg PO DAILY 07/29/18 08/09/18 History Potassium Gluconate 500 mg PO DAILY 07/29/18 08/09/18 History Primidone 50 mg PO TID 07/29/18 08/09/18 History 8. Time, care, counseling and coordination of care for this discharge is greater than 30 minutes. Exam - Vitals Vital Signs: Vital Signs Vital Signs - Last Taken Temperature 98.7 F 08/17/18 06:55 Pulse Rate 72 08/17/18 06:55 Respiratory Rate 18 08/17/18 06:55 Blood Pressure 141/84 08/17/18 06:55 Pulse Ox 95 08/17/18 06:55 Height 6 ft 5 in Weight 263 lb 11.2 oz - General General Appearance: No Acute Distress, Cooperative - Head Head Exam: Normal Inspection, Normocephalic, Atraumatic - Eye Eye Exam: POSITIVE: No Scleral Icterus - ENT ENT Exam: POSITIVE: Mucous Membranes Moist - Respiratory Respiratory Exam: POSITIVE: Clear to Auscultation - Bilaterally, Breathing Non Labored - Cardiovascular Cardiovascular Exam: POSITIVE: RRR, No Murmur, No Clicks, No Gallops, No Rubs, No JVD - GI/Abdominal GI/Abdominal Exam: POSITIVE: Normal Bowel Sounds, Non Tender, Non Distended, Soft - Extremities Extremities Exam: POSITIVE: No Clubbing Present, No Edema Present, No Cyanosis Present - Neurological Neurological Exam: POSITIVE: Alert, Oriented x 3, No Facial Droop, Speech Intact / Clear - Psychiatric Psychiatric Exam: POSITIVE: Normal Affect, Normal Mood Data Peritnent Studies: 08/12/18 08/13/18 08/17/18 04:50 04:32 04:18 WBC 4.32 L Hgb 10.9 L Hct 33.1 L Plt Count 249 Sodium 138 Potassium 4.2 Chloride 105 Carbon Dioxide 25 Anion Gap 8 BUN 25 H Creatinine 1.1 BUN/Creatinine Ratio 22.72 H Glucose 177 H Mean Blood Glucose Hemoglobin A1c Calculated Osmolality 293.0 H Calcium 9.0 Magnesium 1.7 08/17/18 04:18 WBC Hgb Hct Plt Count Sodium Potassium Chloride Carbon Dioxide Anion Gap BUN Creatinine BUN/Creatinine Ratio Glucose Mean Blood Glucose 206.041 Hemoglobin A1c 8.77 H Calculated Osmolality Calcium Magnesium Patient Problems - Patient Problem List (1) Status post hardware removal Current Visit: Yes Status: Acute Code(s): Z98.890 - Other specified postprocedural states Category: Surgical (2) Diabetes Current Visit: Yes Status: Acute Code(s): E11.9 - Type 2 diabetes mellitus without complications Qualifiers: Diabetes mellitus type: type 2 Diabetes mellitus retirement insulin use: with retirement use Diabetes mellitus complication status: without complication Qualified Code(s): E11.9 - Type 2 diabetes mellitus without complications; 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
--- NOTE | 2018-08-17 12:12 | PT.PROG ---
Progress Note Progress Note: S. Patient stated that he is feeling ready to go home today. O. Patient ambulated 100 feet to the stairwell then ascended and descended 6 stairs, he then ambulated 100 feet back to his room where he was left in his chair with alarm and call light. A. Patient tolerated stair training well, he required min to mod assist with stair training however reported he has a "system with a cane" at home that works better on his stairs. P. Patient has met all goals at this time.
== END 2018-08-17 10:35 | disposition home or self-care (01) | DRG 481 ==
LOC: EDSTATUS 08:00 → OPS 08:41 → MED/SURG 12:46
PROVIDERS: ADMIT Orthopaedic Surgery; ATTEND Orthopaedic Surgery